=== PATIENT | female | born 1945 | race Caucasian/White ===

== ENCOUNTER → 2019-01-01 09:08 | Outpatient (CLI) | payer MEDICARE, SELFPAY ==
--- NOTE | 2019-01-01 09:19 | RAD_ITS ---
PROCEDURE: Fluoroscopic guided Hip Injection DATE: January 01, 2019. INDICATION: Female, 73 years old. Chronic left hip pain. PHYSICIAN: Perfecto Mayberry M.D. MEDICATIONS: 6 mg of betamethasone and 3 cc of 1% lidocaine. 2% Lidocaine administered subcutaneously for local anesthesia. ACCESS SITE: Left hip. NEEDLE: 22-gauge spinal needle. FLUOROSCOPY TIME (if supplied): (0:40) minutes/seconds FINDINGS: The risks, benefits, and alternatives to the procedure were explained to the patient. The specific risks of bleeding, infection, and neurovascular injury were detailed and accepted. Witnessed informed consent was obtained. A 22-gauge spinal needle was positioned under radiographic fluoroscopic localization. Approximately 2 cc of Isovue-300 instilled for localization purposes. Medication was then injected. The patient tolerated the procedure well without any immediate complications. The patient was placed supine with head elevated and returned to the floor in stable condition. RAD/Inj/Asp Migel Jt Should/Hip/Knee IMPRESSION: 1. Successful fluoroscopic guided hip injection. Electronically Signed: Perfecto Mayberry MD at 11:10 EST , Service support ,
== END ==
PROVIDERS: Referring Provider Specialist; Visit Provider Specialist
DX: M16.12 Unilateral primary osteoarthritis, left hip (principal)
CPT/HCPCS: 20610; 77002; Q9967; J0702